=== PATIENT | female | born 1985 | race African-American/Black ===

== ENCOUNTER 2021-03-26 09:03 | Emergency (ER) | payer MEDICAID ==
[~2021-03-26] VITALS: Ht 167.6 cm; Wt 58.0 kg
[2021-03-26] MEDS ORDERED: METHYLPREDNISOLONE SOD SUCC 125 MG/2 ML VIAL IM STA (11:09)
[2021-03-26] MEDS ORDERED: KETOROLAC 30MG/ML VIAL IM STA (11:09)
[2021-03-26] MEDS ORDERED: CLINDAMYCIN HCL 150MG CAPSULE PO ONE (11:15)
[2021-03-26 11:51] VITALS: BP 132/86
[2021-03-26] MEDS ORDERED: CLIN300C12 PO (12:01)
[2021-03-26] MEDS ORDERED: IBUP-2029 PO (12:01)
== END 2021-03-26 12:11 | disposition home or self-care (01) ==
LOC: ER 09:03
DX: J02.9 Acute pharyngitis, unspecified (principal); I88.9 Nonspecific lymphadenitis, unspecified
CPT/HCPCS: 96372; 99284; J1885; J2930